=== PATIENT | female | born 1970 | race Caucasian/White ===

== ENCOUNTER 2018-07-17 16:07 | Outpatient (REF) | payer BC, SELFPAY | END 2018-07-17 16:27 | LOC: LBN 16:07 | PROVIDERS: PCP Internal Medicine; Visit Provider Nurse Practitioner Family | DX: N39.0 Urinary tract infection, site not specified (principal) | CPT/HCPCS: 87086 ==

== ENCOUNTER 2018-08-12 12:19 | Outpatient (CLI) | payer BC, SELFPAY ==
[2018-08-12 14:49] LABS: ALT 49 U/L (12-78); AST 28 U/L (15-37); Albumin 4.2 g/dL (3.4-5.0); Alkaline Phosphatase 88 U/L (46-116); Anion Gap 10.7 mmol/L (3-11); BUN 12 mg/dL (7-18); Bilirubin, Total 0.5 mg/dL (0.2-1.0); CO2 27.3 mmol/L (21.0-32.0); CREATININE 0.65 mg/dL (0.55-1.02); Calcium 9.5 mg/dL (8.5-10.1); Chloride 100 mmol/L (98-107); Cholesterol 234 mg/dL (50-200); Glucose 81 mg/dL (70-100); HDL Cholesterol 94 mg/dL (40-60); LDL CHOLESTEROL 125 mg/dL (<100); Potassium 3.9 mmol/L (3.5-5.1); Sodium 138 mmol/L (136-145); Total Protein 7.5 g/dL (6.4-8.2); Triglyceride 111 mg/dL (30-150)
[2018-08-12 15:41] LABS: Bilirubin, Direct 0.14 mg/dL (0.00-0.20)
== END 2018-08-12 12:39 ==
PROVIDERS: PCP Internal Medicine; Visit Provider Internal Medicine
DX: I10 Essential (primary) hypertension (principal); R94.5 Abnormal results of liver function studies
CPT/HCPCS: 36415; 80053; 80061; 80076; 83721

== ENCOUNTER 2018-11-07 17:50 | Emergency (ER) | payer BC, SELFPAY ==
[2018-11-07 18:10] VITALS: BP 137/85; PULSE 119; RESP 16; TEMP 36.7; O2SAT 93
--- NOTE | 2018-11-07 18:27 | DI.RAD_ITS ---
SYMPTOM/DIAGNOSIS: RT SIDED CHEST PAIN, S/P FALL FRONTAL AND LATERAL CHEST: Comparison is made with 09/09/17. The heart is normal in size. The lungs are clear. The mediastinal structures and pleura appear intact. CONCLUSION: Normal chest.
--- NOTE | 2018-11-07 18:28 | W.ED.GENAD ---
Discharge Plan Disposition Patient Disposition: HOME Condition: Stable Discharge Details Chief Complaint: Chest/Rib Clinical Impression: Contusion of rib on right side Primary Care Provider: Teagan Price ED Provider: Jamari Vazquez Home Meds and New Rx's Prescriptions: Continued urea 20 % cream 1 applic TP BID Qty: 85 RF: 0 Hydrocerin (with petrolatum) cream 1 applic TP QID PRN (Reason: dry skin) Qty: 454 RF: 0 clindamycin phosphate 1 % gel 1 applic TP BID MDD 2 applications ON FACE daily Qty: 30 RF: 1 betamethasone dipropionate 0.05 % ointment 1 applic TP BID MDD 2 applic TO EACH ELBOW PRN (Reason: allergic reaction) Qty: 45 RF: 1 losartan-hydrochlorothiazide 50-12.5 mg tablet 1 tab PO DAILY Qty: 90 RF: 3 alprazolam 1 MG tablet 1 mg PO DAILY PRNQty: 30 RF: 2 alprazolam 2 MG tablet extended release 24 hr 2 mg PO DAILY RF: 0 Mirena 1 EACH intrauterine device 1 ea Intrauterine ONCE Qty: 1 RF: 0 hydroxyzine HCl 25 MG tablet 25 mg PO QID PRNQty: 30 RF: 0 Eliquis 2.5 mg tablet 2.5 mg PO BID Qty: 60 RF: 2 methotrexate sodium 2.5 mg tablet 10 mg PO .PER WEEK RF: 0 folic acid 1 mg tablet 1 mg PO DAILY RF: 0 minocycline 100 mg capsule 100 mg PO .COMPLEX RF: 0 bupropion HCl 300 MG tablet extended release 24 hr 300 mg PO DAILY AM RF: 0 Discharge Instructions Instructions: Rib Contusion (ED) Medical Decision Making 47 yo female with hx of PE on eliquis, anxiety, psoariasis, who comes in with right sided chest pain since fallling 2 nights ago. She states she slipped on ice and fell from standing and landed on the right sided and has had right chest pain since. She denies loc and has no n/v or headaches, no neck pain, no abdominal pain. Dneies any pain with exertion and states the pain started after the fall. Denies any symptoms prior to the fall and states it was purely mechanical. She has pain with palpation in the mid axillary line on the right over the 4th-6th ribs with clear lungs. Suspect rib contusion but will xray to eval for fx. She has had alcohol today and states she had 3 drinks, is clinilcaly sober on my exam so do not feel checking level indicated. She declines pain meds at this time pt remains stable, laughing in no distress, xray unremarkable. Still no abdominal tenderness so do not feel additional imaging indicated. Advised f/u with pcp and return precautions given Differential Diagnosis contusion, fx, ptx Imaging Data Radiologic Study: Attestation: I personally reviewed and interpreted this imaging study as follows: Imaging: X-Ray Radiologist's impression: no acute findings HPI General Mode of arrival: ambulatory. Date/Time Provider Initiated Documentation: 11/07/18 17:57. Limitations to Documentation: no limitations. Information obtained by: patient. History of Present Illness 47 year old F presents to the emergency department with the chief complaint of right sided chest pain, described as moderate, with intensity rated at 5. Quality is described as stabbing, and is localized to the chest. Patient reports no radiation. Patient started experiencing this day(s) (2) and it has been constant. No relieving factors improve symptom(s), Other factors that worsen symptoms (direct pressure) . Patient did receive the following treatments prior to arrival, none Related Data Home Medications Medication Instructions Recorded Confirmed bupropion HCl 300 mg PO DAILY AM 11/23/12 11/07/18 alprazolam 1 mg PO DAILY PRN #30 04/12/17 11/07/18 alprazolam 2 mg PO DAILY tab-cap 04/25/17 11/07/18 Mirena 1 ea INTRAUTERINE ONCE #1 implant 09/28/17 11/07/18 hydroxyzine HCl 25 mg PO QID PRN #30 tab-cap 05/23/18 11/07/18 betamethasone dipropionate 0.05 % 1 applic TP BID PRN #45 gm MDD 2 06/07/18 11/07/18 topical ointment applic TO EACH ELBOW clindamycin 1 % topical gel 1 applic TP BID #30 gm MDD 2 06/07/18 11/07/18 applications ON FACE daily urea 20 % topical cream 1 applic TP BID #85 gm 06/07/18 11/07/18 white petrolatum-mineral oil 1 applic TP QID PRN #454 gm 06/07/18 11/07/18 topical cream losartan 50 mg-hydrochlorothiazide 1 tab PO DAILY #90 tab-cap 07/17/18 11/07/18 12.5 mg tablet apixaban 2.5 mg tablet 2.5 mg PO BID #60 tab 08/06/18 folic acid 1 mg tablet 1 mg PO DAILY 09/04/18 11/07/18 methotrexate sodium 2.5 mg tablet 10 mg PO .PER WEEK tab 09/04/18 11/07/18 minocycline 100 mg capsule 100 mg PO .COMPLEX 09/04/18 11/07/18 Previous Rx's Medication Instructions Recorded betamethasone dipropionate 0.05 % 1 applic TP BID PRN #45 gm MDD 2 06/07/18 topical ointment applic TO EACH ELBOW clindamycin 1 % topical gel 1 applic TP BID #30 gm MDD 2 06/07/18 applications ON FACE daily urea 20 % topical cream 1 applic TP BID #85 gm 06/07/18 white petrolatum-mineral oil 1 applic TP QID PRN #454 gm 06/07/18 topical cream losartan 50 mg-hydrochlorothiazide 1 tab PO DAILY #90 tab-cap 07/17/18 12.5 mg tablet apixaban 2.5 mg tablet 2.5 mg PO BID #60 tab 08/06/18 Allergies Allergy/AdvReac Type Severity Reaction Status Date / Time aspirin AdvReac Severe on elequis Unverified 11/07/18 18:15 ropinirole AdvReac Intermediate Nightmares Unverified 11/07/18 18:15 morphine AdvReac Unknown VOMITING Unverified 11/07/18 18:15 General Stated Complaint: Chest/Rib ELIZABETH: 3 Review of Systems Review of Systems All systems reviewed & are unremarkable except as noted in HPI and below Constitutional Denies chills, Denies fever(s) and Denies weakness ENT Denies change in voice Cardiovascular Denies dyspnea Respiratory Denies cough and Denies dyspnea Gastrointestinal Denies abdominal pain, Denies nausea and Denies vomiting Musculoskeletal Denies joint swelling Integumentary/Breasts Denies rash Neurologic Denies weakness Psychiatric Denies depression Endocrine Denies cold intolerance and Denies heat intolerance Allergic/Immunologic Denies urticaria [facility] Medical History Anxiety Panic disorder Surgical History Appendectomy (08/05/15) section colonoscopy (05/02/17) Social History Smoking and Tabacco status: Former Tobacco Use Exam Const General: no acute distress Orientation: alert HENMT Head: normal to inspection Ears: external ears normal General nose exam: external nose normal Mouth: moist mucous membranes Eyes General: appearance normal, both eyes and all related structures Neck Neck: normal visual inspection Chest Chest: no crepitus Resp Effort & Inspection: normal respiratory effort and able to speak in complete sentences Cardio Rate: regular rate Skin General skin exam: no rashes or lesions noted Neuro General: alert and oriented x3 Extrem General: normal to inspection Psych Mental Status: mental status grossly normal Course Vital Signs Temperature 36.7 C 11/07/18 18:10 Pulse 119 H 11/07/18 18:10 Respiratory Rate 16 11/07/18 18:10 Blood Pressure 137/85 11/07/18 18:10 Pulse Oximetry 93 L 11/07/18 18:10 Temperature 36.7 C 11/07/18 18:10 Temperature Source Skin 11/07/18 18:10 Pulse 119 H 11/07/18 18:10 Respiratory Rate 16 11/07/18 18:10 Blood Pressure 137/85 11/07/18 18:10 Blood Pressure Position Sitting 11/07/18 18:10 Pulse Oximetry 93 L 11/07/18 18:10 Oxygen Delivery Method Room Air 11/07/18 18:10 Oxygen Flow Rate 0 11/07/18 18:10 Pain Level 10 11/07/18 18:10 Comment 11/07/18 18:10
--- NOTE | 2018-11-07 18:33 | ED.GENADUL_ITS ---
Discharge Plan Disposition Patient Disposition: HOME Condition: Stable Discharge Details Chief Complaint: Chest/Rib Clinical Impression: Contusion of rib on right side Primary Care Provider: Teagan Price ED Provider: Jamari Vazquez Home Meds and New Rx's Prescriptions: Continued urea 20 % cream 1 applic TP BID Qty: 85 RF: 0 Hydrocerin (with petrolatum) cream 1 applic TP QID PRN (Reason: dry skin) Qty: 454 RF: 0 clindamycin phosphate 1 % gel 1 applic TP BID MDD 2 applications ON FACE daily Qty: 30 RF: 1 betamethasone dipropionate 0.05 % ointment 1 applic TP BID MDD 2 applic TO EACH ELBOW PRN (Reason: allergic reaction) Qty: 45 RF: 1 losartan-hydrochlorothiazide 50-12.5 mg tablet 1 tab PO DAILY Qty: 90 RF: 3 alprazolam 1 MG tablet 1 mg PO DAILY PRNQty: 30 RF: 2 alprazolam 2 MG tablet extended release 24 hr 2 mg PO DAILY RF: 0 Mirena 1 EACH intrauterine device 1 ea Intrauterine ONCE Qty: 1 RF: 0 hydroxyzine HCl 25 MG tablet 25 mg PO QID PRNQty: 30 RF: 0 Eliquis 2.5 mg tablet 2.5 mg PO BID Qty: 60 RF: 2 methotrexate sodium 2.5 mg tablet 10 mg PO .PER WEEK RF: 0 folic acid 1 mg tablet 1 mg PO DAILY RF: 0 minocycline 100 mg capsule 100 mg PO .COMPLEX RF: 0 bupropion HCl 300 MG tablet extended release 24 hr 300 mg PO DAILY AM RF: 0 Discharge Instructions Instructions: Rib Contusion (ED) Medical Decision Making 47 yo female with hx of PE on eliquis, anxiety, psoariasis, who comes in with right sided chest pain since fallling 2 nights ago. She states she slipped on ice and fell from standing and landed on the right sided and has had right chest pain since. She denies loc and has no n/v or headaches, no neck pain, no abdominal pain. Dneies any pain with exertion and states the pain started after the fall. Denies any symptoms prior to the fall and states it was purely mechanical. She has pain with palpation in the mid axillary line on the right over the 4th-6th ribs with clear lungs. Suspect rib contusion but will xray to eval for fx. She has had alcohol today and states she had 3 drinks, is clinilcaly sober on my exam so do not feel checking level indicated. She declines pain meds at this time pt remains stable, laughing in no distress, xray unremarkable. Still no abdom inal tenderness so do not feel additional imaging indicated. Advised f/u with pcp and return precautions given Differential Diagnosis contusion, fx, ptx Imaging Data Radiologic Study: Attestation: I personally reviewed and interpreted this imaging study as follows: Imaging: X-Ray Radiologist's impression: no acute findings HPI General Mode of arrival: ambulatory . Date/Time Provider Initiated Documentation: 11/07/18 17:57 . Limitations to Documentation: no limitations . Information obtained by: patient . History of Present Illness 47 year old F presents to the emergency department with the chief complaint of right sided chest pain, described as moderate, with intensity rated at 5. Quality is described as stabbing, and is localized to the chest. Patient reports no ra diation. Patient started experiencing this day(s) (2) and it has been constant. No relieving factors improve symptom(s), Other factors that worsen symptoms (direct pressure) . Patient did receive the following treatments prior to arrival, none Related Data Home Medications Medication Instructions Recorded Confirmed bupropion HCl 300 mg PO DAILY AM 11/23/12 11/07/18 alprazolam 1 mg PO DAILY PRN #30 04/12/17 11/07/18 alprazolam 2 mg PO DAILY tab-cap 04/25/17 11/07/18 Mirena 1 ea INTRAUTERINE ONCE #1 implant 09/28/17 11/07/18 hydroxyzine HCl 25 mg PO QID PRN #30 tab-cap 05/23/18 11/07/18 betamethasone dipropionate 0.05 % 1 applic TP BID PRN #45 gm MDD 2 06/07/18 11/07/18 topical ointment applic TO EACH ELBOW clindamycin 1 % topical gel 1 applic TP BID #30 gm MDD 2 06/07/18 11/07/18 applications ON FACE daily urea 20 % topical cream 1 applic TP BID #85 gm 06/07/18 11/07/18 white petrolatum-mineral oil 1 applic TP QID PRN #454 gm 06/07/18 11/07/18 topical cream losartan 50 mg-hydrochlorothiazide 1 tab PO DAILY #90 tab-cap 07/17/18 11/07/18 12.5 mg tablet apixaban 2.5 mg tablet 2.5 mg PO BID #60 tab 08/06/18 folic acid 1 mg tablet 1 mg PO DAILY 09/04/18 11/07/18 methotrexate sodium 2.5 mg tablet 10 mg PO .PER WEEK tab 09/04/18 11/07/18 minocycline 100 mg capsule 100 mg PO .COMPLEX 09/04/18 11/07/18 Previous Rx's Medication Instructions Recorded betamethasone dipropionate 0.05 % 1 applic TP BID PRN #45 gm MDD 2 06/07/18 topical ointment applic TO EACH ELBOW clindamycin 1 % topical gel 1 applic TP BID #30 gm MDD 2 06/07/18 applications ON FACE daily urea 20 % topical cream 1 applic TP BID #85 gm 06/07/18 white petrolatum-mineral oil 1 applic TP QID PRN #454 gm 06/07/18 topical cream losartan 50 mg-hydrochlorothiazide 1 tab PO DAILY #90 tab-cap 07/17/18 12.5 mg tablet apixaban 2.5 mg tablet 2.5 mg PO BID #60 tab 08/06/18 Allergies Allergy/AdvReac Type Severity Reaction Status Date / Time aspirin AdvReac Severe on elequis Unverified 11/07/18 18:15 ropinirole AdvReac Intermediate Nightmares Unverified 11/07/18 18:15 morphine AdvReac Unknown VOMITING Unverified 11/07/18 18:15 General Stated Complaint: Chest/Rib ELIZABETH: 3 Review of Systems Review of Systems All systems reviewed & are unremarkable except as noted in HPI and below Constitutional Denies chills, Denies fever(s) and Denies weakness ENT Denies change in voice Cardiovascular Denies dyspnea Respiratory Denies cough and Denies dyspnea Gastrointestinal Denies abdominal pain, Denies nausea and Denies vomiting Musculoskeletal Denies joint swelling Integumentary/Breasts Denies rash Neurologic Denies weakness Psychiatric Denies depression Endocrine Denies cold intolerance and Denies heat intolerance Allergic/Immunologic Denies urticaria [facility] Medical History Anxiety Panic disorder Surgical History Appendectomy (11/12/15) section colonoscopy (05/02/17) Social History Smoking and Tabacco status: Former Tobacco Use Exam Const General: no acute distress Orientation: alert HENMT Head: normal to inspection Ears: external ears normal General nose exam: external nose normal Mouth: moist mucous membranes Eyes General: appearance normal, both eyes and all related structures Neck Neck: normal visual inspection Chest Chest: no crepitus Resp Effort & Inspection: normal respiratory effort and able to speak in complete sentences Cardio Rate: regular rate Skin General skin exam: no rashes or lesions noted Neuro General: alert and oriented x3 Extrem General: normal to inspection Psych Mental Status: mental status grossly normal Course Vital Signs Temperature 36.7 C 11/07/18 18:10 Pulse 119 H 11/07/18 18:10 Respiratory Rate 16 11/07/18 18:10 Blood Pressure 137/85 11/07/18 18:10 Pulse Oximetry 93 L 11/07/18 18:10 Temperature 36.7 C 11/07/18 18:10 Temperature Source Skin 11/07/18 18:10 Pulse 119 H 11/07/18 18:10 Respiratory Rate 16 11/07/18 18:10 Blood Pressure 137/85 11/07/18 18:10 Blood Pressure Position Sitting 11/07/18 18:10 Pulse Oximetry 93 L 11/07/18 18:10 Oxygen Delivery Method Room Air 11/07/18 18:10 Oxygen Flow Rate 0 11/07/18 18:10 Pain Level 10 11/07/18 18:10 Comment 11/07/18 18:10
--- NOTE | 2018-11-07 18:52 | DI.VRAD_ITS ---
EXAM: XR Chest, 2 Views EXAM DATE/TIME: 11/07/2018 6:28 PM CLINICAL HISTORY: 47 years old, female; Pain; Chest wall pain; Additional info: R sided chest pain after fall, no bruising or redness, generalized pain TECHNIQUE: XR of the chest, 2 views. COMPARISON: CR CHEST 2 VIEWS PA,LAT 09/09/2017 12:18 PM FINDINGS: Lungs: Unremarkable. No consolidation. Pleural space: Unremarkable. No pleural effusion. No pneumothorax. Heart/Mediastinum: Unremarkable. No cardiomegaly. Bones/joints: Degenerative changes are seen in the thoracic spine. There is no acute bony abnormality by plain film exam. IMPRESSION: No acute findings Dictated and Authenticated by: Michell Hernandez MD. Ordering:TARUN Kauffman MD
== END 2018-11-07 19:05 | disposition home or self-care (01) ==
LOC: ER 19:08
PROVIDERS: Emergency Provider Emergency Medicine; PCP Internal Medicine
DX: S20.211A Contusion of right front wall of thorax, initial encounter (principal); W00.0XXA Fall on same level due to ice and snow, initial encounter; Z79.01 Long term (current) use of anticoagulants
CPT/HCPCS: 99283; 71046; 99282

== ENCOUNTER 2019-07-06 00:59 | Emergency (ER) | payer MEDICAID, SELFPAY ==
[2019-07-06 01:01] VITALS: BP 117/76; PULSE 107; RESP 20; TEMP 36.9; O2SAT 93
--- NOTE | 2019-07-06 01:09 | DI.CT_ITS ---
EXAM: CT HEAD CERVICAL SPINE WO CLINICAL HISTORY: pain s/p fall, on eliquis. TECHNIQUE: COMPARISON: No exams were available for comparison FINDINGS: CT examination of the cervical spine was performed utilizing multi slice acquisition and multiplanar reconstruction. Tracheolaryngeal structures appear intact. No cervical mass or adenopathy seen. No evidence of acute cervical fracture or dislocation. Noncontrast cranial CT was performed. There is mild generalized cerebral atrophy. No evidence of ac [place] intracranial hemorrhage mass effect or midline shift. The orbital and temporal bone structures a ppear intact. Visualized paranasal sinuses and mastoid air cells appear clear. No calvarial fractur e identified. IMPRESSION: No evidence of acute cervical spine fracture. No evidence of acute intracranial injury.
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
[2019-07-06 02:17] VITALS: BP 125/82; PULSE 100; RESP 18; TEMP 36.8; O2SAT 98
== END 2019-07-06 02:21 | disposition home or self-care (01) ==
PROVIDERS: Emergency Provider Emergency Medicine
DX: S09.90XA Unspecified injury of head, initial encounter (principal); W01.0XXA Fall on same level from slipping, tripping and stumbling without subsequent striking against object, initial encounter; I26.99 Other pulmonary embolism without acute cor pulmonale; Z79.01 Long term (current) use of anticoagulants; I10 Essential (primary) hypertension
CPT/HCPCS: 99284; 70450; 72125

== ENCOUNTER 2019-09-18 11:22 | Emergency (ER) | payer MEDICAID, SELFPAY ==
[2019-09-18] VITALS (40 sets, daily range): BP systolic 120–158; BP diastolic 71–98; PULSE 68–90; RESP 9–45; TEMP 36.7–36.8; O2SAT 89–100
--- NOTE | 2019-09-18 11:34 | ED.GENADUL_ITS ---
Discharge Plan Disposition Patient Disposition: HOME Condition: Improving Discharge Details Chief Complaint: Chest Pain Clinical Impression: Atypical chest pain Primary Care Provider: Unknown,Unknown ED Provider: Marlon Osuna Home Meds and New Rx's Prescriptions: Continued losartan-hydrochlorothiazide 50-12.5 mg tablet 1 tab PO DAILY Qty: 90 RF: 3 Eliquis 2.5 mg tablet 2.5 mg PO BID Qty: 60 RF: 7 Mirena 1 EACH intrauterine device 1 ea Intrauterine ONCE Qty: 1 RF: 0 prazosin 1 mg Capsule 1 mg PO HS RF: 0 naltrexone 50 mg Tablet 50 mg PO DAILY RF: 0 chlordiazepoxide HCl 25 mg Capsule 25 mg PO BID RF: 0 bupropion HCl 300 mg Tablet Extended Release 24 Hr 300 mg PO QAM RF: 0 Discharge Instructions Instructions: Chest Pain (ED) Additional Instructions: Home to rest this evening. Return for recurrent chest discomfort, difficulty breathing, or any other acute concerns reported continue all of your regularly prescribed medications. Please follow-up with your regular doctor for recheck in the next 1 week's time. Discharge Data Discharge Date/Time-TO BE ENTERED AT DEPARTURE: 09/18/19 15:18 Medical Decision Making 48-year-old female presents from home complaining of 2 to 3 days of chest tightness, anxiety, regrets over recent holiday use of alcohol. She is afebrile, in no distress but mildly anxious. Vital signs are unremarkable. Differential diagnoses considered is broad. It would include anxiety, dehydration, electrolyte abnormalities, acute coronary syndrome. Patient had IV access established, given small fluid bolus, referred for laboratory testing, chest x-ray. Patient's chest x-ray without acute findings. Laboratories reveal a white count of 5.9, hematocrit 45, platelets 272. Chemistries with sodium 141, potassium 3.5, chloride 101, bicarb 28, BUN 12, creatinine 0.5, unremarkable LFTs, negative troponin. Repeat troponin obtained and negative as well. Patient improved with fluids and anxiolytic. She is improved, without ongoing discomfort. She will endorse anxiety with ongoing plan for management as an outpatient. Do not feel further work-up is indicated at this time. Discussed return indications the ER with her prior to discharge. Patient stable and appropriate for discharge at this time. ECG Data Attestation: I personally reviewed and interpreted this ECG (s) as follows: Interpretation: Normal sinus rhythm, the rate is 83, the QRS is narrow, there is no ST segment elevation present. QTC is 456. EKG #2 obtained at 1437 hrs. reveals normal sinus rhythm, narrow QRS, rate of 68, no ST segment elevation, isolated inverted T waves in leads III and in lead V1. HPI General Mode of arrival: ambulatory . Date/Time Provider Initiated Documentation: 09/18/19 11:31 . Limitations to Documentation: no limitations . Information obtained by: patient . History of Present Illness 48 year old F presents to the emergency department with the chief complaint of Chest tightness, anxiety, described as moderate, Quality is described as dull and constant, and is localized to the chest. Patient started experiencing this day(s) and it has been constant. No relieving factors improve symptom(s), No exacerbating factors reported . Patient notes cough and other (Feels wheezy at times. Recently increased anxiety due to family stressors). Patient did receive the following treatments prior to arrival, none Related Data Home Medications Medication Instructions Recorded Confirmed Mirena 1 ea INTRAUTERINE ONCE #1 implant 09/28/17 09/18/19 losartan 50 mg-hydrochlorothiazide 1 tab PO DAILY #90 tab-cap 07/17/18 09/18/19 12.5 mg tablet apixaban 2.5 mg tablet 2.5 mg PO BID #60 tab 11/12/18 09/18/19 bupropion HCl 300 mg PO QAM 09/18/19 09/18/19 chlordiazepoxide HCl 25 mg PO BID 09/18/19 09/18/19 naltrexone 50 mg PO DAILY 09/18/19 09/18/19 prazosin 1 mg PO HS 09/18/19 09/18/19 Previous Rx's Medication Instructions Recorded losartan 50 mg-hydrochlorothiazide 1 tab PO DAILY #90 tab-cap 07/17/18 12.5 mg tablet apixaban 2.5 mg tablet 2.5 mg PO BID #60 tab 11/12/18 Allergies Allergy/AdvReac Type Severity Reaction Status Date / Time aspirin AdvReac Severe on elequis Verified 09/18/19 11:31 ropinirole AdvReac Intermediate Nightmares Verified 09/18/19 11:31 morphine AdvReac Unknown VOMITING Verified 09/18/19 11:31 General Stated Complaint: Chest Pain ELIZABETH: 2 Review of Systems Narrative: 6 systems reviewed and otherwise negative [facility] Medical History Anxiety Panic disorder Family History Mother Essential hypertension Father Essential hypertension Sister , PE Neoplasm colon cancer age 57 Pulmonary embolism S/p gastric bypass surgery Social History Smoking/Tobacco Use Status: Former Tobacco Use Alcohol Intake: current Alcohol Intake frequency: holidays/special occasions only Drug use: Never Details: quit smoking at age 31 after heart attack What type of physical activity do you participate in: none Working smoke detector in home: Yes Carbon monox detector in home: Yes Do you feel safe at home: Yes Do you feel safe in your relationship?: Yes Exam Narrative Exam Narrative: GEN: awake, alert, oriented 3. Pleasant, well groomed, interactive. HEAD: Normocephalic, atraumatic ENT: Mucous membranes moist, oropharynx unremarkable, External ear exam unremarkable EYES: PERRL, EOMI NECK: Full ROM, no RUBEN, no menigismus CHEST/RESP: Nontender, clear to auscultation bilateral, discrete scattered end expiratory wheeze CARDIOVASCULAR: RRR, no murmur, rub cassandra. 2+ Rad pulse bilateral ABDOMEN: Soft, nontender, no mass. +Bowel sounds EXT: Full ROM, no edema, no rash Neuro: Grossly normal neurologic exam, conversant, interactive. Psych: Speech fluent, thoughts congruent, affect anxious Course Vital Signs Vital signs: Vital Signs Temperature 36.7 C 09/18/19 11:26 Pulse 84 09/18/19 11:26 Respiratory Rate 20 09/18/19 11:26 Blood Pressure 158/75 H 09/18/19 11:26 Pulse Oximetry 98 09/18/19 11:26 Temperature 36.7 C 09/18/19 11:26 Temperature Source Skin 09/18/19 11:26 Pulse 84 09/18/19 11:26 Respiratory Rate 20 09/18/19 11:26 Blood Pressure 158/75 H 09/18/19 11:26 Pulse Oximetry 98 09/18/19 11:26 Oxygen Delivery Method Room Air 09/18/19 11:26 Oxygen Flow Rate 0 09/18/19 11:26 Pain Level 7 09/18/19 11:26
[2019-09-18] MEDS: Albuterol/Ipratropium 3 ML UPD VIAL UPD (11:53)
[2019-09-18] MEDS: LORazepam 2 MG/ML VIAL 1 MG IVP (11:54)
[2019-09-18] MEDS: Normal Saline 1,000 ML 125 ML IV (12:03)
[2019-09-18 12:15] LABS: Abs Immature Grans 0.01 k/cumm (0.0-0.09); Absolute Basophil Count 0.03 k/cumm (0.0-0.2); Absolute Eosinophil Count 0.06 k/cumm (0.0-0.7); Absolute Lymphocyte Count 1.16 k/cumm (1.2-3.4); Absolute Monocyte Count 0.45 k/cumm (0.11-0.7); Absolute Neutrophil Count 4.22 k/cumm (1.2-6.7); Basophils % 0.5; HGB 14.9 g/dL (12.0-15.5); Immature Grans % 0.2; Lymphocytes % 19.6; Mean Corp. HGB Concentration 33.1 g/dL (32.0-36.0); Mean Corpuscular Volume 99.8 fL (80-95); Mean Platelet Volume 9.9 fL (8.0-11.0); Monocytes % 7.6; Neutrophils % 71.1; Platelet Count 272 x1000/uL (130-400); RBC 4.51 m/cumm (4.00-5.20); White Blood Cell Count 5.93 k/cumm (4.4-10.8)
--- NOTE | 2019-09-18 12:25 | DI.RAD_ITS ---
EXAM: XR CHEST 2V PA LATERAL CLINICAL HISTORY: Chest tightness. TECHNIQUE: 2D digital imaging was performed. COMPARISON: XR CHEST 2V PA LATERAL from 11/07/2018 FINDINGS: LUNGS: Clear. No pleural abnormality seen. HEART: Normal. MEDIASTINUM: Normal. OTHER FINDINGS:Normal. IMPRESSION: No acute pulmonary findings.
[2019-09-18 12:32] LABS: ALT 19 U/L (14-59); AST 20 U/L (15-37); Albumin 3.9 g/dL (3.4-5.0); Alkaline Phosphatase 102 U/L (46-116); Anion Gap 11.5 mmol/L (3-11); BUN 12 mg/dL (7-18); Bilirubin, Total 0.4 mg/dL (0.2-1.0); CO2 28.5 mmol/L (21.0-32.0); CREATININE 0.58 mg/dL (0.55-1.02); Calcium 9.3 mg/dL (8.5-10.1); Chloride 101 mmol/L (98-107); Glucose 91 mg/dL (74-106); Magnesium 2.1 mg/dL (1.8-2.4); Potassium 3.5 mmol/L (3.5-5.1); Sodium 141 mmol/L (136-145); Total Protein 7.5 g/dL (6.4-8.2)
[2019-09-18 12:40] LABS: Troponin I < 0.05 ng/Ml (<0.06)
[2019-09-18 14:57] LABS: Troponin I < 0.05 ng/Ml (<0.06)
== END 2019-09-18 15:18 | disposition home or self-care (01) ==
PROVIDERS: Emergency Provider Emergency Medicine
DX: R07.89 Other chest pain (principal); F41.9 Anxiety disorder, unspecified; I10 Essential (primary) hypertension
CPT/HCPCS: 36415; 80053; 93005; 94640; 96361; 96365; 96375; 99285; 71046; 83735; 84484; 85025; 93010; 99284; J2060; J7620